=== PATIENT | male | born 1985 | race Caucasian/White ===

== ENCOUNTER 2020-10-16 03:35 | Emergency (ER) | payer OTHER ==
[~2020-10-16] VITALS: Ht 180.3 cm; Wt 85.7 kg
[2020-10-16 03:35] VITALS: BP 141/105
[2020-10-16 03:58] VITALS: BP 141/105
== END 2020-10-16 03:58 | disposition left against medical advice (07) ==
LOC: MED 03:35
DX: E11.9 Type 2 diabetes mellitus without complications (principal); Z53.21 Procedure and treatment not carried out due to patient leaving prior to being seen by health care provider